=== PATIENT | female | born 1960 | race Caucasian/White ===

== ENCOUNTER 2019-03-15 18:38 | Emergency (ER) | payer BC ==
[2019-03-15] MEDS ORDERED: DIPHTH,PERTUSS(ACELL),TET 0.5 ML DISP.SYRIN IM ONE ×2 (18:59→21:59)
--- NOTE | 2019-03-15 18:59 | PDOC ---
Rapid Medical Evaluation Time Seen by Provider: 03/15/19 18:56 Medical Evaluation: 03/15/19 18:57 CC: R small finger laceration Pt is a 58 y/o female who presents with a R small finger laceration. Unknown last tetanus. Brief exam: Sensation intact, pt able to move all fingers freely Orders: boostrix To ED for further evaluation Discharge Disposition - Diagnosis Laceration of right little finger - Referrals - Patient Instructions - Post Discharge Activity
[2019-03-15 19:02] VITALS: BP 156/85; PULSE 85; TEMP 97.9; BMI 27.6
--- NOTE | 2019-03-15 21:21 | PDOC ---
History of Present Illness - General Chief Complaint: Laceration Stated Complaint: Injury Time Seen by Provider: 03/15/19 18:56 History Source: Patient Exam Limitations: No Limitations - History of Present Illness Initial Comments: 03/15/19 21:17 HISTORY OF PRESENT ILLNESS: 58-year-old woman who presents emergency department for evaluation of laceration to right little finger while moving patio furniture. She reports her hands came across exposed sharp metal vent which lacerated her hand. Patient immediately put dressing on her hand and came to the emergency department for evaluation. She denies any numbness or tingling or decrease in movement of her hands. Patient is unsure of her last tetanus shot. [id number]. No recent travel or sick contacts. PAST MEDICAL HISTORY: Denies past medical history SURGICAL HISTORY: Denies ALLERGIES: No known drug allergies REVIEW OF SYSTEMS General/Constitutional: Denies fever or chills. Denies weakness, weight change. HEENT: Denies change in vision. Denies ear pain or discharge. Denies sore throat. Cardiovascular: Denies chest pain or shortness of breath. Respiratory: Denies cough, wheezing, or hemoptysis. Gastrointestinal: Denies nausea, vomiting, diarrhea or constipation. Denies rectal bleeding. Genitourinary: Denies dysuria, frequency, or change in urination. Musculoskeletal: Denies joint or muscle swelling or pain. Denies neck or back pain. Skin and breasts: See HPI Neurologic: Denies headache, vertigo, loss of consciousness, or loss of sensation. Psychiatric: Denies depression or anxiety. Endocrine: Denies increased thirst. Denies abnormal weight change. Hematologic/Lymphatic: Denies anemia, easy bleeding, or history of blood clots. Allergic/Immunologic: Denies hives or skin allergy. Denies latex allergy. PHYSICAL EXAM General Appearance: Well-appearing, appropriately dressed. No apparent distress , no intoxication. Musculoskeletal/Extremities: Normal inspection. FROM of all extremities, normal capillary refill. No tenderness to extremities, pedal edema, swelling, erythema or deformity. Full flexion and extension of the fingers of the right hand. Proper alignment noted. No malrotation present with flexion of the fingers. Full sensation distal to laceration. Capillary refill is within normal limits. Integumentary: Appropriate color, dry, warm. No cyanosis, erythema, jaundice or rash. Approximate 2.5 cm linear superficial laceration present to the dorsum of the right fifth finger. No exposed tendon present. Full range of motion of right fifth finger without difficulty. Full sensation noted. Past History - Past Medical History Allergies/Adverse Reactions: Allergies Allergy/AdvReac Type Severity Reaction Status Date / Time No Known Allergies Allergy Verified 03/15/19 18:58 Home Medications: Ambulatory Orders Meloxicam 15 mg PO HS PRN 03/15/19 Olopatadine HCl 1 drop OU BID 03/15/19 COPD: No Other medical history: arthritis - Immunization History Td Vaccination: No Immunization Up to Date: No - Psycho Social/Smoking Cessation Hx Smoking History: Never smoked *Physical Exam - Vital Signs Last Vital Signs Temp Pulse Resp BP Pulse Ox 97.9 F 85 18 156/85 99 03/15/19 18:59 03/15/19 18:59 03/15/19 18:59 03/15/19 18:59 03/15/19 18:59 Procedures - Consent Consent obtained: Verbal, From Patient - Laceration/Wound Repair Right Dorsal Finger 5th digit Wound Length: 2.6 to 5.0 cm Wound Explored: clean Wound's Depth, Shape: superficial, linear Irrigated w/ Saline: Yes Betadine Prep: Yes Anesthesia: 1% Lidocaine Amount of Anesthetic (ccs): 3 Wound Debrided: minimal Wound Repaired With: Sutures Suture Size/Type: 5:0 Number of Sutures: 5 Layer Closure: No Sterile Dressing Applied: Yes Splint Applied: No Sling Applied: No Progress: 03/15/19 21:40 Patient tolerated well. Medical Decision Making - Medical Decision Making 03/15/19 21:20 A/P: 58-year-old woman with laceration to right fifth finger Boostrix Laceration repair-see procedure note for details Discharge home Discharge - Discharge Information Problems reviewed: Yes Clinical Impression/Diagnosis: Laceration of right little finger Qualifiers: Encounter type: initial encounter Damage to nail status: without damage Foreign body presence: without foreign body Qualified Code(s): S61.216A - Laceration without foreign body of right little finger without damage to nail, initial encounter Condition: Stable Disposition: HOME - Admission No - Follow up/Referral Referrals: Ray Juares MD [Primary Care Provider] - - Patient Discharge Instructions Additional Instructions: Keep wound clean and dry Avoid strenuous activity/exercise to create a hot or sweaty environment until sutures are removed Reapply bacitracin ointment 2 times a day until sutures are removed Return to emergency Department or private physician in 7-10 days for suture removal May use Tylenol or Motrin for pain relief Return immediately to emergency department for redness, swelling, pain, or signs of infection - Post Discharge Activity Work/Back to School Note: Back to Work
== END 2019-03-15 22:00 | disposition home or self-care (01) ==
LOC: JERFT 18:38
PROC: 3E0234Z Introduction of Serum, Toxoid and Vaccine into Muscle, Percutaneous Approach (ICD-10-PCS; principal; 2019-03-15)
PROC: 0HQFXZZ Repair Right Hand Skin, External Approach (ICD-10-PCS; 2019-03-15)
DX: S61.216A Laceration without foreign body of right little finger without damage to nail, initial encounter (principal); W26.8XXA Contact with other sharp object(s), not elsewhere classified, initial encounter; Y93.89 Activity, other specified; Y92.018 Other place in single-family (private) house as the place of occurrence of the external cause; Y99.8 Other external cause status
CPT/HCPCS: 90715; 99281-25

== ENCOUNTER 2019-03-22 16:47 | Emergency (ER) | payer BC ==
[2019-03-22 17:18] VITALS: BP 122/80; PULSE 62; TEMP 98.3; BMI 26.6
--- NOTE | 2019-03-22 17:44 | PDOC ---
Suture Removal/Wound Check HPI - History of Present Illness Chief Complaint: Suture/Staple Removal(Here) Stated Complaint: SUTURE REMOVEL Time Seen by Provider: 03/22/19 17:18 History Source: Yes: Patient Exam Limitations: Yes: No Limitations [facility]ated at[facility] Date of Last ED visit: 03/15/19 - Previous ED Treatment Type of procedure performed on last visit: Yes: Laceration Repair Tetanus Immunization: Yes: Up to Date - Onset of Previous Treatment Date of Occurence: 03/15/19 Past History - Past Medical History Allergies/Adverse Reactions: Allergies Allergy/AdvReac Type Severity Reaction Status Date / Time No Known Allergies Allergy Verified 03/22/19 17:35 Home Medications: Ambulatory Orders Meloxicam 15 mg PO HS PRN 03/15/19 Olopatadine HCl 1 drop OU BID 03/15/19 Cephalexin Monohydrate [Keflex -] 500 mg PO Q6H #28 capsule 03/22/19 COPD: No - Immunization History Td Vaccination: No Immunization Up to Date: No - Psycho Social/Smoking Cessation Hx Smoking History: Never smoked Have you smoked in the past 12 months: No Information on smoking cessation initiated: No Hx Alcohol Use: No Drug/Substance Use Hx: No Suture Removal/Wound Check PE - Physical Exam Laceration/Wound Check Symptoms: reports: None, Redness (Minimal, no pus or collection). denies: Pain, Fever Current Severity Level: None Pain Localization: None Location of Laceration/Wound: right: Finger (Base of right little finger on dorsum, sutures intact, they appear that they will open and if sutures are taken out, minimal redness, no discharge) *Physical Exam - Vital Signs Last Vital Signs Temp Pulse Resp BP Pulse Ox 98.3 F 62 20 122/80 99 03/22/19 17:15 03/22/19 17:15 03/22/19 17:15 03/22/19 17:15 03/22/19 17:15 Medical Decision Making - Medical Decision Making 03/22/19 17:52 58-year-old female who had sutures placed to right little finger on 130, came here to see if she can get them removed because she is leaving on vacation tomorrow patient's laceration is healing well, minimal erythema, no signs of gross infection, able to move finger but wound appears to need to heal a few more days before sutures are removed. Patient is going on vacation tomorrow she will come back Tuesday. She will be placed on Keflex and she knows she can have the wound evaluated on Tuesday or Tuesday where she is going or she can return to the ER on Tuesday when she returns home from her vacation. Discussed issues, findings, results, applicable medications and treatments and follow-up. All these were understood and all questions were answered Discharge - Discharge Information Problems reviewed: Yes Clinical Impression/Diagnosis: Visit for wound check Condition: Stable Disposition: HOME - Admission No - Additional Discharge Information Prescriptions: Cephalexin Monohydrate [Keflex -] 500 mg PO Q6H #28 capsule - Follow up/Referral Referrals: Ray Juares MD [Primary Care Provider] - - Patient Discharge Instructions Additional Instructions: Clean with soap and water 2-3 times daily, apply bacitracin Take the Keflex, 500 mg 4 times a day for 7 days Have her reevaluated if redness, pus, fever or getting worse Have sutures removed when you return on Tuesday or have reevaluated while you are on vacation - Post Discharge Activity
== END 2019-03-22 17:45 | disposition home or self-care (01) ==
LOC: JERFT 16:47
DX: Z48.817 Encounter for surgical aftercare following surgery on the skin and subcutaneous tissue (principal)
CPT/HCPCS: 99281-25

== ENCOUNTER 2022-12-02 20:51 | Emergency (ER) | payer BC ==
[2022-12-02 21:05] VITALS: RESP 18; BMI 27.3
[2022-12-02] MEDS ORDERED: ACETAMINOPHEN 1000 MG/100 ML BAG IVPB ONE (22:10)
[2022-12-02] MEDS ORDERED: ACETAMINOPHEN INJECTION 100 ML IVPB ONE (22:11)
[2022-12-02 22:21] LABS: EPI CELLS 1 /uL (0-25.1); HYALINE CASTS 0 /uL (0-3.1); PH,URINE 7.5 (5.0-8.0); URINE APPEARANCE CLEAR; URINE BACTERIA 1596 /uL (0-1359); URINE BILIRUBIN NEGATIVE (NEGATIVE); URINE COLOR YELLOW; URINE GLUCOSE (UA) NEGATIVE (NEGATIVE); URINE KETONE NEGATIVE (NEGATIVE); URINE LEUK ESTERASE 3+ (NEGATIVE); URINE NITRITE NEGATIVE (NEGATIVE); URINE PROTEIN 2+ (NEGATIVE); URINE RBC 329 /uL (0-23.9); URINE WBC 1612 /uL (0-25.8)
[2022-12-02 22:28] LABS: POTASSIUM 3.8 mmol/L (3.5-5.1)
[2022-12-02 22:30] LABS: ALBUMIN 3.8 g/dl (3.4-5.0); BLOOD UREA NITROGEN 10.6 mg/dL (7-18); CALCIUM 9.2 mg/dL (8.5-10.1)
[2022-12-02 22:33] LABS: BASO % 0.4 % (0-2.0); CREATININE 0.7 mg/dL (0.55-1.3); EOS % 2.3 % (0-4.5); HEMATOCRIT 38.6 % (32.4-45.2); HEMOGLOBIN 13.3 GM/dL (10.7-15.3); LYMPH % 11.5 % (8-40); MCH 30.9 pg (25.7-33.7); MCHC 34.5 g/dl (32.0-36.0); MEAN CELL VOLUME 89.8 fl (80-96); MEAN PLT VOLUME 7.9 fl (7.5-11.1); MONO % 8.9 % (3.8-10.2); NEUT % 76.9 % (42.8-82.8); PLATELET COUNT 232 10^3/uL (134-434); RBC 4.29 M/mm3 (3.60-5.2); RDW 13.2 % (11.6-15.6); WHITE BLOOD COUNT 10.3 K/mm3 (4.0-10.0)
[2022-12-02 22:35] LABS: BILIRUBIN,TOTAL 0.5 mg/dL (0.2-1); TOT PROT 6.8 g/dl (6.4-8.2)
[2022-12-03 01:25] VITALS: BP 131/85; PULSE 52; TEMP 97.8
== END 2022-12-03 01:59 | disposition home or self-care (01) ==
LOC: JER 20:51
PROC: 3E033NZ Introduction of Analgesics, Hypnotics, Sedatives into Peripheral Vein, Percutaneous Approach (ICD-10-PCS; principal; 2022-12-02)
DX: R10.9 Unspecified abdominal pain (principal); R30.0 Dysuria; N12 Tubulo-interstitial nephritis, not specified as acute or chronic
CPT/HCPCS: 36415; 74176-TC; 80053; 81003; 85025; 87086; 87186; 99284-25

== ENCOUNTER 2023-10-05 04:27 | Day surgery (SDC) | payer BC ==
[2023-09-29 14:04] VITALS: BMI 28.7
[2023-10-05 09:36] VITALS: TEMP 98.2
[2023-10-05 09:46] VITALS: RESP 18
[2023-10-05 10:22] VITALS: BP 137/74; PULSE 52
== END 2023-10-05 10:28 | disposition home or self-care (01) ==
LOC: JASU-ENDO 04:27
PROVIDERS: ATTEND Internal Medicine Gastroenterology
PROC: 0DB98ZX Excision of Duodenum, Via Natural or Artificial Opening Endoscopic, Diagnostic (ICD-10-PCS; 2023-10-05)
PROC: 0DB68ZX Excision of Stomach, Via Natural or Artificial Opening Endoscopic, Diagnostic (ICD-10-PCS; 2023-10-05)
PROC: 0DB28ZX Excision of Middle Esophagus, Via Natural or Artificial Opening Endoscopic, Diagnostic (ICD-10-PCS; 2023-10-05)
PROC: 0DB38ZX Excision of Lower Esophagus, Via Natural or Artificial Opening Endoscopic, Diagnostic (ICD-10-PCS; 2023-10-05)
PROC: 0DJD8ZZ Inspection of Lower Intestinal Tract, Via Natural or Artificial Opening Endoscopic (ICD-10-PCS; principal; 2023-10-05 09:30)
DX: Z12.11 Encounter for screening for malignant neoplasm of colon (principal); K57.30 Diverticulosis of large intestine without perforation or abscess without bleeding; Z86.010 Personal history of colon polyps; K21.00 Gastro-esophageal reflux disease with esophagitis, without bleeding; R10.13 Epigastric pain; R12 Heartburn; R10.84 Generalized abdominal pain
CPT/HCPCS: 88305-TC; 88342-TC